=== PATIENT | male | born 1955 | race Caucasian/White ===

== ENCOUNTER 2017-04-26 19:35 | Emergency (ER) | payer MEDICARE, OTHER ==
[~2017-04-26] VITALS: Ht 172.7 cm; Wt 73.5 kg
[~2017-04-26 19:35] MED LIST: AMLO5TAB2 PO; ASPI81TA31 PO; CARV12.52 PO; GABA300C PO; SIMV20TA6 PO; VALS1TAB8 PO
--- NOTE | 2017-04-26 21:00 | NUR ---
ERMD at bedside for MSE.
--- NOTE | 2017-04-26 22:29 | NUR ---
Patient discharged to home in stable conditon. Written and verbal after care instructions given. Patient verbalizes understanding of instructions.
== END 2017-04-26 22:30 | disposition home or self-care (01) ==
LOC: ER 19:35
DX: S80.212A Abrasion, left knee, initial encounter (principal); L08.9 Local infection of the skin and subcutaneous tissue, unspecified; Z79.82 Long term (current) use of aspirin; Z88.0 Allergy status to penicillin; I10 Essential (primary) hypertension; E11.9 Type 2 diabetes mellitus without complications; W01.0XXA Fall on same level from slipping, tripping and stumbling without subsequent striking against object, initial encounter; Y93.89 Activity, other specified; Y92.9 Unspecified place or not applicable; Y99.9 Unspecified external cause status
CPT/HCPCS: 73590; 93971; 99284; A4663

== ENCOUNTER 2020-03-19 21:58 | Emergency (ER) | payer MEDICARE, OTHER ==
[~2020-03-19] VITALS: Ht 172.7 cm; Wt 73.9 kg
[~2020-03-19 21:58] MED LIST changes: -AMLO5TAB2 PO; +AMLO5TAB9 PO; +SIMV-46 PO; -SIMV20TA6 PO
[2020-03-19] MEDS ORDERED: PIOG30TA72 PO (22:18)
[2020-03-19] MEDS ORDERED: NPH SQ (22:18)
[2020-03-19] MEDS ORDERED: ACAR25TA PO (22:18)
[2020-03-19] MEDS ORDERED: OLME1TAB32 PO (22:18)
[2020-03-19] MEDS ORDERED: VANCOMYCIN IV 1,000 MG in IV DEXTROSE 5% 250 ML IV ONE (22:30)
[2020-03-19] MEDS ORDERED: MORPHINE SULFATE 4 MG/1 ML DISP.SYRIN IM ONE (23:00)
--- NOTE | 2020-03-19 23:23 | NUR ---
US at bedside
[2020-03-19 23:25] LABS: BASOPHILS % (AUTO) 0.7 % (0.0-2.0); EOSINOPHILS # (AUTO) 0.3 K/uL (0.0-0.7); EOSINOPHILS % (AUTO) 7.8 % (0.0-7.0); HEMATOCRIT 32.5 % (36.7-47.1); HEMOGLOBIN 10.8 g/dL (12.5-16.3); LYMPHOCYTES # (AUTO) 0.9 K/uL (20.0-40.0); LYMPHOCYTES % (AUTO) 22.8 % (20.5-51.5); MEAN CORPUSCULAR HEMOGLOBIN 30.3 uug (23.8-33.4); MEAN CORPUSCULAR HGB CONC 33 g/dL (32.5-36.3); MEAN CORPUSCULAR VOLUME 91.3 fL (73.0-96.2); MONOCYTES # (AUTO) 0.3 K/uL (2.0-10.0); MONOCYTES % (AUTO) 6.8 % (0.0-11.0); NEUTROPHILS # (AUTO) 2.4 K/uL (1.8-8.9); NEUTROPHILS % (AUTO) 61.9 % (38.5-71.5); PLATELET COUNT (AUTO) 219 K/uL (152-348); RED BLOOD CELL COUNT(AUTO) 3.56 MIL/uL (4.06-5.63); WHITE BLOOD COUNT (AUTO) 3.8 K/uL (3.6-10.2)
[2020-03-19] MEDS ORDERED: MORPHINE SULFATE 4 MG/1 ML DISP.SYRIN ONE (23:29)
[2020-03-19] MEDS ORDERED: VANCOMYCIN IV 200 ML ONE (23:29)
[2020-03-19 23:34] LABS: CARBON DIOXIDE 23 mmol/L (21-32); CHLORIDE 105 mmol/L (98-107); CREATININE 2.3 mg/dL (0.6-1.3); GLUCOSE 193 mg/dL (74-106); POTASSIUM 4.6 mmol/L (3.5-5.1); UREA NITROGEN, BLOOD 46 mg/dL (7-18)
[2020-03-19 23:40] LABS: ALANINE AMINOTRANSFERASE 21 U/L (16-63); ALKALINE PHOSPHATASE 93 U/L (50-136); ASPARTATE AMINOTRANSFERASE 22 U/L (15-37); BILIRUBIN,TOTAL 0.5 mg/dL (0.2-1.0)
--- NOTE | 2020-03-20 01:41 | NUR ---
VANCOMYCIN INFUSED. IV D/C'D INTACT. PT HAD WOUND CLEANED ON POLYSPORIN OINT PLACED AND COVERED WITH A DRESSING. ACI/RX X2 GIVEN. PT AMBULATED W/O DIFF/TOOK ALL BELONGINGS.
[2020-03-20 01:43] VITALS: BP 195/92
== END 2020-03-20 01:44 | disposition home or self-care (01) ==
LOC: ER 21:58
DX: S80.211A Abrasion, right knee, initial encounter (principal); L08.9 Local infection of the skin and subcutaneous tissue, unspecified; W19.XXXA Unspecified fall, initial encounter; Y92.89 Other specified places as the place of occurrence of the external cause; Z79.4 Long term (current) use of insulin; E11.22 Type 2 diabetes mellitus with diabetic chronic kidney disease; I12.9 Hypertensive chronic kidney disease with stage 1 through stage 4 chronic kidney disease, or unspecified chronic kidney disease; N18.9 Chronic kidney disease, unspecified
CPT/HCPCS: 36415; 73564; 80053; 85025; 86140; 93971; 96365; 96366; 99284; J3370; 85651; A4663; J2270